=== PATIENT | male | born 1975 | race African-American/Black ===

== ENCOUNTER 2019-08-29 20:02 | Observation (INO) | payer BC, SELFPAY ==
[2019-08-29 20:04] VITALS: BP 147/82; PULSE 56; RESP 19; TEMP 36.6; O2SAT 100
[2019-08-29 20:10] LABS: Glucose Point of Care 331 (65-105)
[2019-08-29 20:13] LABS: Basophils Percent Auto 0.1 % (0.2-1.2); Eosinophils Percent Auto 0.1 % (0-4.4); Hematocrit 39.3 % (42.0-52.0); Hemoglobin 13.8 g/dL (14.0-18.0); Immature Granulocyte Absolute 0.07 K/mm3 (0.00-0.031); Immature Granulocyte Percent A 0.5 % (0-0.5); Lymphocytes Absolute Auto 2.76 K/mm3 (0.9-3.2); Lymphocytes Percent Auto 19.4 % (18.3-44.2); Mean Corpuscular HGB Conc 35.1 g/dl (32-36); Mean Corpuscular Hemoglobin 31.8 pg (26-34); Mean Corpuscular Volume 90.6 fl (80-100); Mean Platelet Volume 9.5 fl (7.4-10.4); Monocytes Absolute Auto 0.8 K/mm3 (0.1-0.6); Monocytes Percent Auto 5.5 % (2.6-8.5); Neutrophils Absolute Auto 10.6 K/mm3 (1.3-6.7); Neutrophils Percent Auto 74.4 % (45.5-73.1); Platelet Count Result 340 k/mm3 (150-375); Red Blood Count 4.34 M/mm3 (4.6-6.20); Red Cell Distribution Width 12.4 % (11.5-14.5); White Blood Count 14.2 K/mm3 (4.5-10.0)
[2019-08-29 20:25] LABS: Alanine Aminotransferase 28 U/L (4-50); Albumin Level 4.7 g/dL (3.5-5.1); Alkaline Phosphatase 115 U/L (38-126); Aspartate Amino Transferase 29 U/L (17-59); Bilirubin,Total 0.8 mg/dL (0.2-1.3); Blood Urea Nitrogen 15 mg/dL (9-20); Calcium 9.8 mg/dL (8.4-10.2); Carbon Dioxide 26 mmol/L (22-30); Chloride 97 mmol/L (98-107); Estimated CRCL calculation 112 ml/min; Estimated Glomerular Filt Rate > 60; Glucose 339 mg/dL (75-110); Lipase 62 U/L (23-300); Potassium 3.5 mmol/L (3.4-5.0); Sodium 137 mmol/L (137-145)
--- NOTE | 2019-08-29 21:18 | ED.NAVMDI ---
HPI - Nausea/Vomiting/Diarrhea General Chief complaint: Nausea/Vomiting/Diarrhea Stated complaint: n/v Time Seen by Provider: 08/29/19 21:17 History of Present Illness HPI Narrative: Nausea, vomiting, and diarrhea for the past 2 days. Associated mild pain at the lower costal margin. He has type II diabetes but is not currently being treated due to change in insurance. No fever, sick contacts. Related Data Allergies Allergy/AdvReac Type Severity Reaction Status Date / Time cephalexin Allergy Mild RASH Verified 08/29/19 21:38 egg Allergy Mild NAUSEA/FEVE Verified 08/29/19 21:38 R Penicillins Allergy Mild RASH Verified 08/29/19 21:38 Review of Systems Review of Systems: All systems reviewed & are unremarkable except as noted in HPI and below Constitutional: Constitutional: Denies fever(s) ENT: Denies sore throat Cardiovascular: Cardiovascular: Denies chest pain Respiratory: Respiratory: Denies dyspnea Gastrointestinal: Gastrointestinal: Reports abdominal pain, Reports diarrhea, Reports nausea and Reports vomiting Genitourinary: Genitourinary: Denies hematuria and Denies dysuria Musculoskeletal: Musculoskeletal: Denies back pain Neurologic: Denies dizziness Endocrine: Endocrine: Reports polyuria [facility] Past Medical History Medical History (Updated 08/30/19 @ 02:51 by Pranay Willis MD) Diabetes mellitus Social History Social History Gender identity (if verbalized by the patient): Male Exam Const: General: healthy appearing, no acute distress, alert and ill appearing Orientation/consciousness: patient oriented x3 HENMT: Mouth: Yes dry mucous membranes Neck: Neck: normal visual inspection and no lymphadenopathy Chest: Chest palpation & inspection: no tenderness Resp: Effort & Inspection: normal respiratory effort Auscultation: clear to auscultation bilaterally, no rales, no rhonchi and no wheezes Cardio: Jugular venous distension: no JVD Rate: regular rate Rhythm: regular rhythm Heart sounds: no murmurs GI: Inspection: non-distended GI Palp: Yes Soft to palpation and No Tenderness to palpation present (GI) Skin: General skin exam: normal color Neuro: General: patient oriented x3 and moves all extremities Speech: normal speech Extrem: General: no edema Psych: Appearance: well kempt Affect: normal affect Course Course Emergency Course: He had brief symptomatic relief with haldol, although symptoms returned. I will plan to admit for intractable nausea and vomiting. Vital Signs Vital signs: Vital Signs Temperature 36.6 C 08/29/19 20:04 Pulse Rate 56 L 08/29/19 20:04 Respiratory Rate 19 08/29/19 20:04 Blood Pressure 147/82 H 08/29/19 20:04 Pulse Oximetry 100 08/29/19 20:04 Temperature 36.6 C 08/29/19 20:04 Pulse Rate 54 L 08/30/19 01:00 Respiratory Rate 16 08/30/19 01:00 Blood Pressure 187/89 H 08/30/19 01:00 Pulse Oximetry 98 08/30/19 01:00 MDM - Nausea/Vomiting/Diarrhea Differential Diagnosis Differential diagnosis: Likely gastroenteritis Medical Records Attestation: I reviewed the patient's medical records. Lab Data Attestation: I reviewed the patient's lab results. Result diagrams: 08/29/19 20:09 08/29/19 20:09 Labs: Lab Results 08/29/19 08/29/19 08/29/19 Range/Units 20:08 20:09 20:09 WBC 14.2 H (4.5-10.0) K/mm3 RBC 4.34 L (4.6-6.20) M/mm3 Hgb 13.8 L (14.0-18.0) g/dL Hct 39.3 L (42.0-52.0) % MCV 90.6 (80-100) fl MCH 31.8 (26-34) pg MCHC 35.1 (32-36) g/dl RDW 12.4 (11.5-14.5) % Plt Count 340 (150-375) k/mm3 MPV 9.5 (7.4-10.4) fl Immature Gran % (Auto) 0.5 (0-0.5) % Neut % (Auto) 74.4 H (45.5-73.1) % Lymph % (Auto) 19.4 (18.3-44.2) % [place] % (Auto) 5.5 (2.6-8.5) % Eos % (Auto) 0.1 (0-4.4) % Baso % (Auto) 0.1 L (0.2-1.2) % Lymph # (Auto) 2.76 (0.9-3.2)
[2019-08-29] MEDS: SODIUM CHLORIDE 0.9% IV 2,000 ML 999 ML IV CONT (21:33)
[2019-08-29] MEDS: ONDANSETRON INJ 4 MG/2 ML VIAL IV PUSH (21:34)
[2019-08-29] MEDS: PROMETHAZINE HCL 25 MG/ML AMPUL 12.5 MG IV PUSH (21:43)
[2019-08-29 21:49] LABS: Glucose Point of Care 353 (65-105)
[2019-08-29 22:49] VITALS: BP 153/93; BP 183/69; BP 189/78; PULSE 56; PULSE 65
[2019-08-29 22:50] VITALS: BP 183/69; PULSE 69; RESP 20; O2SAT 100
--- NOTE | 2019-08-29 22:50 | PC.NURSE ---
Pt still unable to urinate at this time.
--- NOTE | 2019-08-29 23:12 | PC.NURSE ---
RN report given to Ada.
[2019-08-29 23:42] LABS: Add Urine Microscopic? YES; Appearance Urine Clear (Clear); Bilirubin Urine Negative (Negative); Blood Urine 2+ (Negative); Color Urine Yellow (Yellow); Glucose Urine UA 3+ mg/dL (Negative); Ketones Urine 1+ mg/dL (Negative); Leukocyte Esterase Ur Negative LEU/UL (Negative); Mucus Urine Rare /lpf; Nitrate Urine Negative (Negative); Protein Urine 3+ mg/dL (Negative); RBC Urine 21-50 /hpf (0-2); Specific Grav Ur 1.021 (1.001-1.035); Urobilinogen Urine Negative mg/dL (<2.0); WBC Urine 0-3 /hpf
[2019-08-29] MEDS: HALOPERIDOL LACTATE 5 MG/ML VIAL IV PUSH (23:45)
[2019-08-29 23:49] VITALS: BP 187/78; PULSE 65; RESP 16; O2SAT 98
[2019-08-30] VITALS (9 sets, daily range): BP systolic 151–198; BP diastolic 58–89; PULSE 54–63; RESP 16–20; TEMP 37–37.5; O2SAT 94–100; BMI 34.7
--- NOTE | 2019-08-30 03:54 | ADMGEN ---
This patient, Nils Sorensen, was admitted to [facility] Surg Room 300-01. Patient/family oriented to hospital policies and general routines including ID bracelet, bed and alarms, visiting hours, pain management, procedures, bathroom and other care routines, personal items, smoking policy, room service/diet, and visiting hours. Valuables list has been completed. Information on how to activate the Rapid Response Team has been discussed. Patient/Family are encouraged to report perceived risks to care and to ask questions if they do not understand what they are told or what they should do.
[2019-08-30] MEDS: LACTATED RINGERS 1,000 ML 150 ML IV CONT ×2 (04:11→13:06)
[2019-08-30 04:17] LABS: Glucose Point of Care 285 (65-105)
[2019-08-30] MEDS: INSULIN ASPART (*BKC) 100 UNITS/ML SUB-Q ×4 (05:11→23:48)
[2019-08-30] MEDS: hydrALAZINE HCL 20 MG/ML VIAL 10 MG IV PUSH ×2 (05:13→20:57)
[2019-08-30 05:24] LABS: Glucose Point of Care 284 (65-105)
[2019-08-30 06:05] LABS: Basophils Percent Auto 0.2 % (0.2-1.2); Eosinophils Percent Auto 0.1 % (0-4.4); Hematocrit 34.9 % (42.0-52.0); Hemoglobin 12.1 g/dL (14.0-18.0); Immature Granulocyte Absolute 0.08 K/mm3 (0.00-0.031); Immature Granulocyte Percent A 0.5 % (0-0.5); Lymphocytes Absolute Auto 2.56 K/mm3 (0.9-3.2); Lymphocytes Percent Auto 17.3 % (18.3-44.2); Mean Corpuscular HGB Conc 34.7 g/dl (32-36); Mean Corpuscular Volume 92.3 fl (80-100); Mean Platelet Volume 9.2 fl (7.4-10.4); Monocytes Absolute Auto 1.2 K/mm3 (0.1-0.6); Monocytes Percent Auto 8.1 % (2.6-8.5); Neutrophils Percent Auto 73.8 % (45.5-73.1); Platelet Count Result 292 k/mm3 (150-375); Red Blood Count 3.78 M/mm3 (4.6-6.20); Red Cell Distribution Width 12.6 % (11.5-14.5); White Blood Count 14.8 K/mm3 (4.5-10.0)
[2019-08-30 06:19] LABS: Blood Urea Nitrogen 15 mg/dL (9-20); Calcium 8.5 mg/dL (8.4-10.2); Carbon Dioxide 28 mmol/L (22-30); Chloride 102 mmol/L (98-107); Estimated CRCL calculation 127 ml/min; Estimated Glomerular Filt Rate > 60; Glucose 286 mg/dL (75-110); Magnesium 1.6 mg/dL (1.6-2.3); Potassium 3.5 mmol/L (3.4-5.0); Sodium 138 mmol/L (137-145)
[2019-08-30 12:58] LABS: Glucose Point of Care 284 (65-105)
--- NOTE | 2019-08-30 16:03 | PM.IMHP ---
H&P: HPI History of Present Illness Chief complaint: intractable nausea and vomiting Narrative: Date of admission: 08/29/2019 Date of service: 08/30/2019 Nils Sorensen is a 43 year old male with a history of type 2 diabetes mellitus, hyperlipidemia, and asthma who presented to the emergency department on the evening of 08/29/2019 from home with complaints of nausea and vomiting that had been ongoing for 2 days. He was vomiting yellow-green liquid and denied any blood in his emesis. He also noted loose stools. He was not able to tolerate any oral intake. He said this is his third episode of persistent N/V over the past 6 months. He denied any abdominal pain or cramping. He is feeling better today and has only vomited one time. He does not feel nauseous at this time. He denied hematochezia or dark and tarry stools. He denies fever, chills, dizziness, or lightheadedness. He denies GERD symptoms. He admits he smokes marijuana daily. He also notes he has been off his diabetes medication for an extended period of time because he had a transition in his insurance and was homeless for a brief period. He now has a stable living environment and insurance. He denies any known diabetes complications and denies any symptoms of neuropathy. He denies polyuria or polydipsia. He does endorse occasional blurred vision which he believes is related to hyperglycemia and has plans to see an eye doctor soon. He denies shortness of breath, chest pain, cough, palpitations, chest pain, cold or flu symptoms, bleeding, or bruising. Review of Systems Review of Systems: Narrative: A 12 point review of systems was reviewed with pertinent positives and negatives as per HPI. [facility] Past Medical History Medical History (Updated 08/30/19 @ 16:40 by Samina Escalera PA-C) Asthma Diabetes mellitus Herniated disc Hyperlipidemia Surgical History Surgical History (Updated 08/30/19 @ 16:18 by Samina Escalera PA-C) S/P excision of vocal cord nodule 2014 Family History Family History (Updated 08/30/19 @ 16:18 by Samina Escalera PA-C) Mother Diabetes mellitus Father Dementia Social History Social History (Updated 08/30/19 @ 16:21 by Samina Escalera PA-C) Social History: Mr. Sorensen lives at home with his and 4 children. 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 He designates his Tiffanie as his surrogate decision maker and he would like to be a full code. Smoking packs per day: 1 Smoking cigarettes per day: 20.0 Years smoked: 3 Smoking pack-years: 3.00 Smoking status: Former smoker Alcohol intake: former Alcohol use details: He used to drink daily in social situations but has not drank in 4 years. Substance use: current Substance use type: marijuana Other substance usage details: Daily marijuana use Living arrangements: with family Occupation/Education: unemployed Gender identity (if verbalized by the patient): Male Spiritual care concerns: No Meds Home Medications and Allergies Home Medications Medication Instructions Recorded Confirmed Type No Home Medications 08/30/19 08/30/19 History Allergies Allergy/AdvReac Type Severity Reaction Status Date / Time cephalexin Allergy Mild RASH Verified 08/29/19 21:38 egg Allergy Mild NAUSEA/FEVE Verified 08/29/19 21:38 R Penicillins Allergy Mild RASH Verified 08/29/19 21:38 Vital Signs Vital Signs - 24 hr 08/29/19 20:04 08/29/19 22:49 08/29/19 22:50 Temperature 98 F Pulse Rate 56 L 56 L 69 Respiratory Rate 19 20 Blood Pressure 147/82 H 183/69 H 183/69 H Pulse Oximetry 100 100 08/29/19 23:49 08/30/19 01:00 08/30/19 02:27 Temperature Pulse Rate 65 54 L 63 Respiratory Rate 16 16 16 Blood Pressure 187/78 H 187/89 H 186/80 H Pulse Oximetry 98 98 100 08/30/19 03:24 08/30/19 03:30 08/30/19 06:00 Temperature 98.8 F 99.0 F Pulse Rate 60 56 L 54 L Respiratory Rate 1
[2019-08-30 17:50] LABS: Glucose Point of Care 258 (65-105)
[2019-08-30] MEDS: INSULIN GLARGINE (*BKC) 100 UNITS/ML 16 UNITS SUB-Q (20:51)
[2019-08-30 20:57] LABS: Glucose Point of Care 253 (65-105)
[2019-08-30] MEDS: FAMOTIDINE 20 MG/2 ML VIAL IV PUSH (20:57)
[2019-08-30] MEDS: LACTATED RINGERS 1,000 ML 100 ML IV CONT (23:41)
[2019-08-30 23:51] LABS: Glucose Point of Care 241 (65-105)
[2019-08-31] MEDS: INSULIN ASPART (*BKC) 100 UNITS/ML SUB-Q ×2 (05:20→12:28)
[2019-08-31 05:22] LABS: Glucose Point of Care 222 (65-105)
[2019-08-31 06:00] VITALS: BP 168/63; PULSE 52; RESP 20; TEMP 37; O2SAT 98
[2019-08-31 06:32] LABS: Basophils Percent Auto 0.2 % (0.2-1.2); Eosinophils Absolute Auto 0.1 K/mm3 (0-0.3); Eosinophils Percent Auto 0.3 % (0-4.4); Hematocrit 38.4 % (42.0-52.0); Hemoglobin 13.1 g/dL (14.0-18.0); Immature Granulocyte Absolute 0.08 K/mm3 (0.00-0.031); Immature Granulocyte Percent A 0.5 % (0-0.5); Lymphocytes Absolute Auto 3.57 K/mm3 (0.9-3.2); Lymphocytes Percent Auto 21.4 % (18.3-44.2); Mean Corpuscular HGB Conc 34.1 g/dl (32-36); Mean Corpuscular Hemoglobin 31.9 pg (26-34); Mean Corpuscular Volume 93.4 fl (80-100); Mean Platelet Volume 9.5 fl (7.4-10.4); Monocytes Absolute Auto 1.4 K/mm3 (0.1-0.6); Monocytes Percent Auto 8.6 % (2.6-8.5); Neutrophils Absolute Auto 11.5 K/mm3 (1.3-6.7); Platelet Count Result 334 k/mm3 (150-375); Red Blood Count 4.11 M/mm3 (4.6-6.20); Red Cell Distribution Width 12.6 % (11.5-14.5); White Blood Count 16.7 K/mm3 (4.5-10.0)
[2019-08-31 06:42] LABS: Hemoglobin A1C 10.3 % (<5.7)
[2019-08-31 06:52] LABS: Anion Gap 13.1 mmol/L (7-16); Blood Urea Nitrogen 12 mg/dL (9-20); Calcium 8.6 mg/dL (8.4-10.2); Carbon Dioxide 28 mmol/L (22-30); Chloride 99 mmol/L (98-107); Estimated CRCL calculation 127 ml/min; Estimated Glomerular Filt Rate > 60; Glucose 213 mg/dL (75-110); Potassium 3.1 mmol/L (3.4-5.0); Sodium 137 mmol/L (137-145)
[2019-08-31] MEDS: amLODIPine BESYLATE 5 MG TABLET PO (08:10)
[2019-08-31] MEDS: FAMOTIDINE 20 MG/2 ML VIAL IV PUSH (08:10)
[2019-08-31] MEDS: ENOXAPARIN 40 MG/0.4 ML SYRINGE SUB-Q (08:10)
[2019-08-31 12:50] LABS: Glucose Point of Care 253 (65-105)
[2019-08-31 14:00] VITALS: BP 164/75; PULSE 57; RESP 16; TEMP 37.2; O2SAT 100
--- NOTE | 2019-08-31 15:43 | PM.DS ---
DS: Admitting Diagnosis Admitting Diagnosis Admitting Diagnosis: Nausea with vomiting, unspecified DS: Discharge Diagnosis Discharge Diagnosis (1) Intractable nausea and vomiting: Code(s): R11.2 - Nausea with vomiting, unspecified Status: Acute Assessment and Plan: Presented with ongoing N/V for 2 days. Possible etiologies include gastroparesis from uncontrolled DM, GERD, adverse effect of daily marijuana use, or viral gastroenteritis. He had one episode of emesis during his admission on 08/29, and then nausea and vomiting resolved. He did not have any abdominal pain. Vitals were stable and he remained afebrile with mild leukocytosis. Lipase was WNL. He was rehydrated with IV fluids and was able to advance to a regular, bland diet. We discussed the importance of improved glycemic control and he was advised to avoid daily marijuana use. I recommended he begin taking an antacid such as pepcid daily. I also discussed that should his symptoms persist, he may need to be referred to a relay technician as an outpatient and he should discuss this with his PCP. (2) Leukocytosis: Qualifiers: Leukocytosis type: unspecified Qualified Code(s): D72.829 - Elevated white blood cell count, unspecified Code(s): D72.829 - Elevated white blood cell count, unspecified Status: Acute Assessment and Plan: He had mild leukocytosis. Suspect that this was reactive secondary to nausea and vomiting. Infectious etiology was considered but felt to be less likely as he had no fevers, chills, diarrhea, or any other symptoms to suggest infection and N/V is better explained by noninfectious etiology. UA was normal. Lungs clear to auscultation and no cough or SOB. No RUQ or epigastric pain, lipase wnl, no diarrhea or bloody stools. He will have outpatient CBC in 1 week. (3) Diabetes mellitus: Qualifiers: Diabetes mellitus complication status: without complication Diabetes mellitus fpc insulin use: without watermelon harvesting supervisor use Diabetes mellitus type: type 2 Qualified Code(s): E11.9 - Type 2 diabetes mellitus without complications Code(s): E11.9 - Type 2 diabetes mellitus without complications Status: Acute Assessment and Plan: He has been off medication for some time due to several social issues. He believes he used to be on humalog and lantus but can't recall specifically. Current A1c is 10.3. His blood sugars were elevated during his stay with highest 353 but improved following lantus and sliding scale insulin given during his stay. Current A1c is 10.3. I started him on low dose metformin 500 mg bid, which will likely need to be uptitrated at PCPs discretion, as well as glipizide. He was given a glucometer and was educated on monitoring his blood sugars. I recommended he monitor ACHS and record the readings for his PCP to review. We discussed signs and symptoms of hypoglycemia to watch for. Importance of proper diet and exercise were also discussed. (4) Hypertension: Qualifiers: Hypertension type: essential hypertension Qualified Code(s): I10 - Essential (primary) hypertension Code(s): I10 - Essential (primary) hypertension Status: Acute Assessment and Plan: He denies any history of HTN. His BP readings were consistently elevated with multiple readings in the 180s systolic. He was started on amlodipine 5 mg which he will continue outpatient. I educated him on monitoring his BP at home. (5) Noncompliance with medication regimen: Code(s): Z91.14 - Patient's other noncompliance with medication regimen Status: Acute Assessment and Plan: He was dealing with homelessness and loss of insurance which prevented him from taking his medications and attending his doctor appointments. He is now in a stable environment and plans to get things back in order. I stressed to him the importance of establishing care with a PCP. He was given a list of provide
--- NOTE | 2019-08-31 16:41 | PCDIET ---
Patient is tolerating current diet with adequate intake. No weight loss reported. PO intake 50-90%. Pt is back on DM meds. A1c of 10.3. We reviewed importance of regularly timed meals with protein and limiting carbs to 45-60g at meals. Handouts and contact info provided. Pt d/c today.
== END 2019-08-31 16:05 | disposition home or self-care (01) ==
LOC: ANHED 08-30 02:51 → ANH3MEDSUR 08-30 03:09
PROVIDERS: Physician Assistant; Admitting Provider Family Medicine; Emergency Provider Emergency Medicine; Visit Provider Internal Medicine
DX: R11.2 Nausea with vomiting, unspecified (principal); E11.65 Type 2 diabetes mellitus with hyperglycemia; D72.829 Elevated white blood cell count, unspecified; E78.5 Hyperlipidemia, unspecified; F12.90 Cannabis use, unspecified, uncomplicated; J45.909 Unspecified asthma, uncomplicated; I10 Essential (primary) hypertension; Z79.4 Long term (current) use of insulin; Z91.14 Patient's other noncompliance with medication regimen; Z87.891 Personal history of nicotine dependence
CPT/HCPCS: 36415; 80048; 80053; 81001; 82948; 83036; 83690; 83735; 85025; 96361; 96372; 96374; 96375; 99285; A9270; G0378; G0379; J0360; J1630; J1650; J1815; J2405; J2550; J7030; J7120